=== PATIENT | male | born 1940 | race Caucasian/White ===

== ENCOUNTER 2019-11-12 11:56 | Inpatient (IN) | payer MEDICARE, BC ==
[~2019-11-12] VITALS: Ht 182.9 cm; Wt 84.0 kg
[2019-11-12 14:35] LABS: Alanine Aminotransfer (ALT/SGP 32 U/L (12-78); Albumin, Blood 3.7 g/dL (3.4-5.0); Albumin/Globulin Ratio 1.6 (0.8-1.8); Alk Phos 93 U/L (50-136); Anion Gap 7 mmol/L (6-16); Aspartate Aminotrans (AST/SGOT 26 U/L (12-37); Bilirubin, Total 2.8 mg/dL (0.1-1.0); Blood Urea Nitrogen 29 mg/dL (8-24); Bun/Creatinine Ratio 27.1 (12.0-20.0); CO2, Blood 20 mmol/L (21-32); Calcium, Blood 8.5 mg/dL (8.5-10.1); Chloride, Blood 111 mmol/L (98-108); Creatinine, Blood 1.07 mg/dL (0.60-1.20); Globulin, Blood 2.3 g/dL (2.2-4.0); Glomerular Filtration Rate >60 (60-); Glucose, Blood 93 mg/dL (70-99); Potassium, Blood 4.4 mmol/L (3.5-5.5); Sodium, Blood 138 mmol/L (136-145)
[2019-11-12 14:38] LABS: Mean Platelet Volume 10.6 fL (9.1-12.4); NRBC ABSOLUTE 0.31 K/mm3 (0.00-0.02); NRBC Auto 0.2 /100 WBC (0.0-0.2); Platelet Count 190 K/mm3 (150-400)
[2019-11-12 14:41] LABS: Mean Corpuscular HGB 32.7 pg (26.0-34.0); Mean Corpuscular Volume 142 fL (80-100); Red Blood Cell Count 1.07 M/mm3 (4.30-5.90)
[2019-11-12 14:42] LABS: Hemoglobin 3.5 g/dL (13.5-17.5)
[2019-11-12 14:43] LABS: Hematocrit 15.2 % (37.0-53.0)
[2019-11-12 14:44] LABS: White Blood Cell Count 178.05 K/mm3 (4.00-11.30)
[2019-11-12 14:56] LABS: BASOPHILS PERCENT MAN 0 % (0-2); EOSINOPHILS PERCENT MAN 0 % (0-6); LYMPHOCYTES ABSOLUTE MAN 176.26 K/mm3 (0.84-5.20); LYMPHOCYTES PERCENT MAN 99 % (21-46); MONOCYTES PERCENT MAN 0 % (4-13); NEUTROPHILS ABSOLUTE MAN 1.78 K/mm3 (1.96-9.15); SEG NEUTROPHILS PERCENT MAN 1 % (41-73); TOTAL CELLS COUNTED 100
[2019-11-12 15:45] LABS: Percent Saturation 58.7 % (20.0-50.0)
[2019-11-12 15:54] LABS: IMMATURE RETIC FRACTION 43.7 % (2.3-16.0); RETIC HGB EQUIVALENT 35.4 pg (28.20-36.60); RETICULOCYTE ABSOLUTE 0.1966 M/mm3 (0.0200-0.1100); RETICULOCYTE COUNT PERCENT 21.6 % (0.50-2.50)
--- NOTE | 2019-11-12 16:48 | NUR ---
ECHOCARDIOGRAM COMPLETE
[2019-11-12 16:55] LABS: Bilirubin, Direct 0.4 mg/dL (0.0-0.3); Bilirubin, Indirect 2.4 mg/dL (0.1-0.7); Bilirubin, Total 2.8 mg/dL (0.1-1.0)
--- NOTE | 2019-11-12 18:30 | NUR ---
RECEIVED REPORT FROM ED RN. PT TRANSPORTED TO PCU VIA GURNEY, IN NO ACUTE DISTRESS. DENIES ANY NEEDS AT THIS TIME. CALL LIGHT AND POSSESSIONS IN REACH, BED IN LOW AND LOCKED POSITION.
[2019-11-12 19:25] LABS: International Normalized Ratio 1.35; Prothrombin Time Results 13.9 Sec (9.7-11.5)
--- NOTE | 2019-11-12 20:00 | NUR ---
[facility] CONTACTED PT WITH ORDERS FOR HIGH RISK TRANSFUSION (HRT). HRT FORM FILLED OUT AND SIGNED BY ADMITTING PROVIDER. ORDERS STATED BY PREVIOUS SHIFT RN FOR "UNITS OF PRBCS TO RUN OVER SIX HOURS", UNSURE WHETHER TIME FRAME TO BE SIX HOURS PER UNIT. ORDERS ALSO RECIEVED TO ADMINISTER BENEDRYL, TYLENOL AND SOLU-MEDROL PRIOR TO TRANSFUSION; SOLU-MEDROL IS SCHEDULED Q6 AT THIS TIME AND NOT PRN WITH TRANSFUSION. PROVIDER, ELIEZER, CONTACTED AND ORDERS CLARIFIED. SOLU-MEDROL TO BE GIVEN ORDERED, TYLENOL AND BENEDRYL TO BE GIVEN PRIOR TO EACH TRANSFUSION FOR POTENTIAL REACTION. PT TO BE GIVEN ONE TIME DOSE OF LASIX ORDERED. EACH UNIT TO BE GIVEN OVER SIX HOURS, VERY SLOW TRANSFUSION DUE TO HIGH RISK. PT EDUCATED ON PROVIDER'S ORDERS AND HIGH RISK STATUS. PT VERBALIZES UNDERSTANDING AND REPORTS THAT THIS WAS COVERED WITH PROVIDER UPON ADMISSION. WILL CONTINUE TO MONITOR AND PREPARE FOR BLOOD TRANSFUSIONS.
[2019-11-12] MEDS ORDERED: Vitamin D2000 UNIT PO (21:52)
[2019-11-12] MEDS ORDERED: BETIMOL5 ML BOTHEYES (21:52)
[2019-11-13 04:41] LABS: EOSINOPHILS PERCENT AUTO 0 % (0-6); Mean Platelet Volume 10.5 fL (9.1-12.4); NRBC ABSOLUTE 0.34 K/mm3 (0.00-0.02); NRBC Auto 0.2 /100 WBC (0.0-0.2); Platelet Count 183 K/mm3 (150-400)
[2019-11-13 04:50] LABS: BASOPHILS PERCENT AUTO 0 % (0-2); Hematocrit 18.4 % (37.0-53.0); IMMATURE GRAN ABSOLUTE AUTO 0.17 K/mm3 (0.00-0.10); IMMATURE GRAN PERCENT AUTO 0 % (0-1); LYMPHOCYTES ABSOLUTE AUTO 184.33 K/mm3 (0.84-5.20); LYMPHOCYTES PERCENT AUTO 97 % (21-46); MONOCYTES ABSOLUTE AUTO 2.99 K/mm3 (0.16-1.47); MONOCYTES PERCENT AUTO 2 % (4-13); Mean Corpuscular HGB 32.6 pg (26.0-34.0); Mean Corpuscular HGB Conc 23.9 g/dL (31.5-36.5); Mean Corpuscular Volume 136 fL (80-100); NEUTROPHILS ABSOLUTE AUTO 2.34 K/mm3 (1.96-9.15); NEUTROPHILS PERCENT AUTO 1 % (41-73); Red Blood Cell Count 1.35 M/mm3 (4.30-5.90)
[2019-11-13 04:54] LABS: Hemoglobin 4.4 g/dL (13.5-17.5); White Blood Cell Count 189.93 K/mm3 (4.00-11.30)
[2019-11-13 05:01] LABS: Alanine Aminotransfer (ALT/SGP 28 U/L (12-78); Albumin, Blood 3.4 g/dL (3.4-5.0); Albumin/Globulin Ratio 1.4 (0.8-1.8); Alk Phos 84 U/L (50-136); Anion Gap 9 mmol/L (6-16); Aspartate Aminotrans (AST/SGOT 21 U/L (12-37); Bilirubin, Total 3.2 mg/dL (0.1-1.0); Blood Urea Nitrogen 31 mg/dL (8-24); Bun/Creatinine Ratio 25.8 (12.0-20.0); CO2, Blood 19 mmol/L (21-32); Calcium, Blood 8.1 mg/dL (8.5-10.1); Chloride, Blood 110 mmol/L (98-108); Globulin, Blood 2.4 g/dL (2.2-4.0); Glomerular Filtration Rate >60 (60-); Glucose, Blood 125 mg/dL (70-99); Lactate Dehydrogenase (Ld),Bld 307 U/L (100-240); Potassium, Blood 4.6 mmol/L (3.5-5.5); Sodium, Blood 138 mmol/L (136-145); Total Protein, Blood 5.8 g/dL (6.4-8.2)
--- NOTE | 2019-11-13 05:16 | NUR ---
SHIFT SUMMARY PT HAS REMAINED AOX4 THROUGHOUT SHIFT. VSS. PLEASANT AND COOPERATIVE WITH CARE. PT WITH FLAT AFFECT AND SOMEWHAT IRRITABLE AT START OF SHIFT DUE TO FRUSTRATIONS WITH CURRENT ILLNESS; AFFECT STARTED TO IMPROVE THROUGHOUT THE NIGHT TREATMENT WAS INITIATED. PT HAS RESTED THROUGHOUT MUCH OF THE NIGHT, WAKING EASILY FOR CARE AND VITAL SIGNS. ONE BLOOD TRANSFUSION ADMINISTERED AND SECOND ONE STARTED THIS SHIFT. ORDERS TO TRANSFUSE VERY SLOWLY, SIX HOURS PER UNIT. LUNG SOUNDS HAVE REMAINED CLEAR THROUGHOUT THE NIGHT WITH NO CHANGES WITH BLOOD ADMINISTRATION. PT WITH NO S/SX OF TRANSFUSION REACTION NOTED OF NOW. PT CONTINUES TO AMBULATE INDEPENDENTLY TO THE RESTROOM WITHOUT DIFFICULTY. DENIES DIZZINESS/LIGHTHEADEDNESS AND DYSPNEA THROUGHOUT THE NIGHT. NO OTHER CHANGES NOTED FROM INITIAL ASSESSMENT. WILL CONTINUE TO MONITOR AND REPORT TO ONCOMING SHIFT RN. BED IN LOW POSITION, CALL LIGHT IN REACH.
--- NOTE | 2019-11-13 07:50 | NUR ---
START OF SHIFT NOTE: RECEIVED REPORT FROM LORENA RICARDO, ASSUMED CARE, SIRIAN IS AWAKE, SITTING UP IN BED, ALERT AND ORIENTED, ON RA SATING IN MID 90'S, LUNG SOUNDS CLEAR, EATING BREAKFAST WITH GOOD APPETITE, SECOND UNIT OF PRBC'S INFUSING AT SLOW RATE, PER DR. TERRAZAS, SPEED UP NEXT TWO UNITS, SINCE NO REACTION NOTED OF YET, PATIENT IS INDEPENDENT IN ROOM, USES BATHROOM FACILITIES, DR. LAGUNA CONSULTED D/T PATIENT HAVING CHRONIC CLL, VSS, DENIES PAIN, AFEBRILE, CALL LIGHT IN REACH, WILL CONTINUE TO MONITOR.
[2019-11-13 09:05] LABS: Source, Urine Clean Catch
[2019-11-13 09:08] LABS: Appearance, Urine Clear (Clear); Bilirubin, Urine Neg (Neg); Blood, Urine Neg (Neg); Color, Urine Yellow (P-Yellow); Glucose Qualitative, Urine Neg (Neg); Ketones, Urine Neg (Neg); Leukocyte Esterase, Urine Neg (Neg); Nitrite, Urine Neg (Neg); Protein, Urine Neg (Neg); Urobilinogen, Urine 1+ (Normal)
[2019-11-13 09:28] LABS: Performing Lab BLOOD WORKS; Test Name ELUTION
[2019-11-13 10:53] LABS: Hematocrit 22.6 % (37.0-53.0)
--- NOTE | 2019-11-13 10:55 | NUR ---
PATIENT WAS PRE-MEDICATED WITH BENADRYL AND TYLENOL PRIOR TO THIRD UNIT OF PRBC'S, ALSO INSTRUCTED TO CALL IMMEDIATELY IF HE FELT SOB, TACHYCARDIC, ITCHY, FLUSHED, NOTICED A RASH, ETC., PATIENT VERBALIZED UNDERSTANDING, AT BEDSIDE, CALL LIGHT IN REACH, WILL CONTINUE TO MONITOR.
[2019-11-13 11:06] LABS: Hemoglobin 5.6 g/dL (13.5-17.5)
--- NOTE | 2019-11-13 11:30 | NUR ---
PATIENT REPORTS NO ADVERSE REACTIONS TO PRBC INFUSION, CALL LIGHT IN REACH, WILL CONTINUE TO MONITOR.
--- NOTE | 2019-11-13 13:21 | NUR ---
PATIENT RESTING COMFORTABLY, SITTING AT SIDE OF BED READING, CALL LIGHT IN REACH, WILL CONTINUE TO MONITOR.
--- NOTE | 2019-11-13 15:15 | NUR ---
FOURTH UNIT OF PRBC'S STARTED, PATIENT WAS PRE-MEDICATED WITH BENADRYL AND TYLENOL ORDERED, PATIENT WAS INSTRUCTED TO NOTIFY NURSING STAFF IMMEDIATELY WHEN HE NOTICES SOB, TACHYCARDIA, FEELING FLUSHED, ITCHY, OR NOTICES A RASH, PATIENT VERBALIZED UNDERSTANDING, AT BEDSIDE, CALL LIGHT IN REACH, WILL CONTINUE TO MONITOR.
[2019-11-13 15:39] LABS: Hematocrit 26.1 % (37.0-53.0); Hemoglobin 6.9 g/dL (13.5-17.5)
--- NOTE | 2019-11-13 17:41 | NUR ---
SHIFT SUMMARY NOTE: NO ACUTE EVENTS DURING THIS SHIFT, PATIENT DENIES PAIN, AFEBRILE, VSS, RECEIVING THE 4TH UNIT OF PRBC'S AT THIS TIME, HEMOGLOBIN UP TO 6.9 AFTER THIRD UNIT OF PRBC'S, PATIENT SHOWED NO REACTIONS DURING BLOOD ADMINISTRATION, EATING ALL MEALS WITH GOOD APPETITE, FOR DETAILS SEE SHIFT ASSESSMENT AND NURSES NOTES, CALL LIGHT IN REACH, WILL CONTINUE TO MONITOR AND GIVE REPORT TO ONCOMING HOME MAKER.
[2019-11-13 21:09] LABS: Hematocrit 26.9 % (37.0-53.0); Hemoglobin 7.4 g/dL (13.5-17.5)
--- NOTE | 2019-11-14 05:27 | NUR ---
SHIFT SUMMARY PT HAS REMAINED AOX4 THROUGHOUT SHIFT. VSS. PLEASANT AND COOPERATIVE WITH CARE. PT HAS RESTED THROUGHOUT MUCH OF THE NIGHT, WAKING EASILY FOR CARE. PT CONTINUES TO AMBULATE INDEPENDENTLY TO THE RESTROOM WITHOUT DIFFICULTY. DENIES PAIN AND DYSPNEA. PT REPORTS THAT HE IS FEELING MUCH BETTER AFTER COMPLETION OF TRANSFUSIONS AND SOME REST. NO OTHER CHANGES NOTED FROM INITIAL ASSESSMENT. WILL CONTINUE TO MONITOR AND REPORT TO ONCOMING SHIFT RN. BED IN LOW POSITION, CALL LIGHT IN REACH.
--- NOTE | 2019-11-14 08:16 | NUR ---
DR TERRAZAS ROUNDS DR TERRAZAS ROUNDED, UPDATED ON PT STATUS. PER DR TERRAZAS, PLAN TO RECHECK H&H AND IF REMAINS STABLE OKAY TO D/C PT LATER THIS AFTERNOON. NO FURTHER CHANGES TO PLAN OF CARE. WILL CONT TO MONITOR PT.
[2019-11-14 08:29] LABS: Hematocrit 28.8 % (37.0-53.0); Hemoglobin 7.8 g/dL (13.5-17.5)
[2019-11-14] MEDS ORDERED: PRED20 PO (11:36)
--- NOTE | 2019-11-14 12:00 | NUR ---
D/C ORDERS D/C ORDERS RECEIVED FROM DR TERRAZAS. PT AWARE. PT FINISHING LUNCH AND THEN WILL GO OVER D/C PAPERWORK. PT VERY ANTSY TO LEAVE.
--- NOTE | 2019-11-14 12:24 | NUR ---
D/C REVIEW D/C PAPERWORK REVIEWED WITH PT. PT VERBALIZED UNDERSTANDING. PER PT HE HAS BEEN IN COMMUNICATION WITH HIS ONCOLOGIST AT [facility] AND PLANS TO ARRANGE AN APPOINTMENT TODAY TO SEE THEM [place]. IV D/C WITHOUT COMPLICATION, CATHETER INTACT. ALL BELONGINGS WITH PT. PT CHANGING INTO STREET [employer] AND CALLING HIS RIDE.
--- NOTE | 2019-11-14 13:25 | NUR ---
D/C NOTE PER REPORT FROM QUENTIN CARABALLO RN, PT D/C HOME AT 1245. PT AMBULATED TO HOSPITAL ENTRANCE WITHOUT EVENT, ALL BELONGINGS WITH PT.
== END 2019-11-14 12:45 | disposition home or self-care (01) | DRG 841 ==
LOC: ER 11:56 → PCU 15:32
PROVIDERS: Emergency Medicine; Internal Medicine; Nurse Practitioner Acute Care; ADMIT Internal Medicine
DX: C91.10 Chronic lymphocytic leukemia of B-cell type not having achieved remission (principal); D59.4 Other nonautoimmune hemolytic anemias; R17 Unspecified jaundice; I34.0 Nonrheumatic mitral (valve) insufficiency; I27.21 Secondary pulmonary arterial hypertension; Z66 Do not resuscitate
CPT/HCPCS: 36415; 36430; 71046; 80053; 81003; 82247; 82248; 82272; 82330; 82607; 82728; 82746; 83010; 83540; 83550; 83615; 83735; 83880; 84550; 85014; 85018; 85025; 85045; 85610; 86850; 86860; 86870; 86880; 86900; 86901; 86906; 86920; 86922; 86978; 93306; 96374; 99285-25; A9270; J1200; J1940; J2930; J7050; P9016

== ENCOUNTER 2020-12-05 16:42 | Emergency (ER) | payer MEDICARE, BC ==
[~2020-12-05] VITALS: Ht 182.9 cm; Wt 79.4 kg
[~2020-12-05 16:42] MED LIST: BETIMOL5 ML BOTHEYES; PRED20 PO; Vitamin D2000 UNIT PO
[2020-12-05] MEDS ORDERED: KEFLEX500 MG PO (18:53)
== END 2020-12-05 19:10 | disposition home or self-care (01) ==
LOC: ER 16:42
DX: S66.921A Laceration of unspecified muscle, fascia and tendon at wrist and hand level, right hand, initial encounter (principal); Z79.52 Long term (current) use of systemic steroids; Z23 Encounter for immunization; Z79.899 Other long term (current) drug therapy; W29.3XXA Contact with powered garden and outdoor hand tools and machinery, initial encounter
CPT/HCPCS: 12004; 90471; 99282-25; A9270